=== PATIENT | female | born 1970 | race Caucasian/White ===

== ENCOUNTER → 2017-02-12 | Outpatient (CLI) | payer OTHER ==
[~2017-02-12] MED LIST: ASPI-515 PO; CITA40TA12 PO; OXYC1TAB7 PO
== END | disposition home or self-care (01) ==
LOC: RAD 12:49 → EDSTATUS 13:45
PROVIDERS: ATTEND Orthopaedic Surgery
DX: M75.41 Impingement syndrome of right shoulder (principal)